=== PATIENT | male | born 1955 | race Caucasian/White ===

== ENCOUNTER 2020-08-22 18:04 | Emergency (ER) | payer OTHER, SELFPAY ==
[2020-08-22 18:11] VITALS: BP 157/92; PULSE 66; RESP 16; TEMP 36.5; O2SAT 98
[2020-08-22] MEDS: Lidocaine/Epinephri/Tetracaine Topical Gel 3 ML TP (18:28)
--- NOTE | 2020-08-22 18:37 | DI.RAD_ITS ---
EXAM: XR FINGER RT INDEX CLINICAL HISTORY: open laceration, table saw TECHNIQUE: COMPARISON: No exams were available for comparison FINDINGS: Three views were obtained. There is a nondisplaced fracture of the tuft the distal phalanx of the in dex finger at the site of soft tissue injury. No additional fracture seen. There are degenerative c hanges of the IP joints of the hand. IMPRESSION: RADIATION DOSE DELIVERED: Total DLP
--- NOTE | 2020-08-22 18:38 | ED.GENADUL_ITS ---
Discharge Plan Disposition Patient Disposition: HOME Condition: Stable Discharge Details Clinical Impression: Laceration of right index finger w/o foreign body with damage to nail Primary Care Provider: Sterling Brandon ED Provider: Clau Cormier Home Meds and New Rx's Prescriptions: New cephalexin [Keflex] 500 mg capsule 500 mg PO QID Qty: 20 RF: 0 Continued Prevnar 13 (PF) 0.5 mL syringe 0.5 ml IM ONCE Qty: 0.5 RF: 0 amoxicillin 500 mg capsule 2,000 mg PO PRN Qty: 20 RF: 1 aspirin [Aspirin Low-Strength] 81 MG tablet,chewable 81 mg PO DAILY RF: 0 minocycline 50 mg capsule 50 mg PO DAILY PRN (Reason: rosacea) Qty: 30 RF: 2 Discharge Instructions Instructions: Finger Laceration (ED) Additional Instructions: Keep your dressing clean dry and intact Elevate your finger above the level of your heart to reduce throbbing and pain You can use ibuprofen and/or acetaminophen as directed for pain Your tetanus was updated on this visit Call Sunday for a follow-up appointment for dressing change and wound check. 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 LET applied to area, x-ray shows 1. acute fracture of the second distal phalanx involving the tuft and the small portion of the diaphysis no significant distraction, 2. degenerative changes wound irrigated by nursing, surgicel and xeroform applied, tube gauze to secure. tetanus updated. given cefazolin 2 gm IVPB and will discharge on keflex 500 mg QID and outpatient orthopedic f/u for further management. reports no pain. Medical Records Medical records reviewed: Yes I reviewed the patient's medical records. Lab Data Lab results narrative: xray right index finger, fracture distal phaylnx HPI General Date/Time Provider Initiated Documentation: 08/22/20 18:17 . Limitations to Documentation: no limitations . Information obtained by: patient . HPI Narrative: Cut his right index finger on a table saw. Amputating the distal end of his finger including half of his nail and nailbed. Bleeding is controlled on presentation. Denies pain. No other injury. Is left-hand dominant. Unknown last tetanus Related Data Home Medications Medication Instructions Recorded Confirmed aspirin [Aspirin Low-Strength] 81 mg PO DAILY tab-cap 10/13/15 10/30/18 amoxicillin 500 mg capsule 2,000 mg PO PRN #20 cap 10/30/18 10/30/18 pneumoc 13-amilcar conj-dip cr(PF) 0.5 0.5 ml IM ONCE #0.5 ml 10/30/18 10/30/18 mL IM syringe minocycline 50 mg capsule 50 mg PO DAILY PRN #30 tab-cap 02/26/20 cephalexin [Keflex] 500 mg PO QID #20 cap 08/22/20 Previous Rx's Medication Instructions Recorded amoxicillin 500 mg capsule 2,000 mg PO PRN #20 cap 10/30/18 pneumoc 13-amilcar conj-dip cr(PF) 0.5 0.5 ml IM ONCE #0.5 ml 10/30/18 mL IM syringe minocycline 50 mg capsule 50 mg PO DAILY PRN #30 tab-cap 02/26/20 cephalexin [Keflex] 500 mg PO QID #20 cap 08/22/20 Allergies Allergy/AdvReac Type Severity Reaction Status Date / Time No Known Allergies Allergy Unverified 10/30/18 09:06 General Stated Complaint: Laceration MEEK: 3 Review of Systems All systems reviewed & are unremarkable except as noted in HPI and below Integumentary/Breasts Skin/Breast: Reports other (Amputation distal index finger) Hematologic/Lymphatic Hematologic/Lymphatic: Denies easy bleeding and Denies easy bruising [facility] Medical History (Updated 08/22/20 @ 19:00 by Clau Cormier NP) Alcohol intake above recommended sensible limits Polyp of colon, adenomatous Rosacea Surgical History ANKLE FUSION AND JOHNNIE (05/25/14) [facility]; LEFT ANKLE (RIGHT ANKLE 08/25/14) Colonoscopy - MAC (11/18/13) Colonoscopy - MAC (12/19/17) FRACTURE AGE 4; DEPRESSED SKULL FX; 1968 RIGHT CLAVICLE FX 1971 B/L COMPOUND FX OF TIBIA 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 Brother No problems noted. Brother No problems noted. Other Alcohol abuse Social History (Updated 10/31/18 @ 09:34 by Abril Pearl) Smoking/Tobacco Use Status: Former Tobacco Use Alcohol Intake: current Alcohol Intake frequency: 3 or more drinks per day Drug use: Never Substance use type: does not use Household members: spouse Housing: house Pets and animals: No Sexually active: Yes Do you think of yourself as: straight/heterosexual Current gender identity: male What is your relationship status?: How often do you get together with friends or relatives?: once per week Panel score (0-1 are the most socially isolated patients): 1 Duration: 15-30 minutes/day Frequency: 5-6 times per week Do you feel safe in your relationship?: Yes Exam Const General: cooperative, healthy appearing, comfortable and no acute distress Nutritional Appearance: average body habitus Orientation: alert, awake and oriented x3 HENMT Head: normal to inspection, normocephalic and atraumatic Mouth: oral mucosae normal Resp Effort & Inspection: normal respiratory effort Auscultation: clear to auscultation bilaterally Cardio Rate: regular rate Rhythm: regular rhythm Skin Wounds: amputation site (distal right index finger, partial nail and nail bed, bleeding controlled) Neuro General: patient alert, patient awake and patient oriented x3 Extrem Right upper extremity: hand Details: other (amp/avulsion distal right index) Course Vital Signs Vital signs: Vital Signs Temperature 36.5 C 08/22/20 18:11 Pulse 66 08/22/20 18:11 Respiratory Rate 16 08/22/20 18:11 Blood Pressure 157/92 H 08/22/20 18:11 Pulse Oximetry 98 08/22/20 18:11 Temperature 36.5 C 08/22/20 18:11 Temperature Source Temporal Artery Scan 08/22/20 18:11 Pulse 66 08/22/20 18:11 Respiratory Rate 16 08/22/20 18:11 Respiratory Effort Non-Labored 08/22/20 18:28 Blood Pressure 157/92 H 08/22/20 18:11 Blood Pressure Position Sitting 08/22/20 18:11 Pulse Oximetry 98 08/22/20 18:11 Oxygen Delivery Method Room Air 08/22/20 18:11 Oxygen Flow Rate 0 08/22/20 18:11 Pain Level 1 08/22/20 18:28
--- NOTE | 2020-08-22 18:51 | DI.VRAD_ITS ---
PROCEDURE INFORMATION: Exam: XR Right Finger(s) Exam date and time: 08/22/2020 18:33 Age: 65 years old Clinical indication: Injury or trauma; Other: Table saw; Laceration; Right; Index finger TECHNIQUE: Imaging protocol: XR Right fingers. Views: Minimum 2 views. COMPARISON: No relevant prior studies available. FINDINGS: Bones/joints: Acute fracture, 2nd distal phalanx involving the tuft and a tiny portion of the diaphysis. No significant distraction. Degenerative changes throughout the interphalangeal joints as well as in the radial aspect of the wrist and radiocarpal joint. DIP and PIP degenerative changes appear moderate to severe in the 2nd digit. Soft tissues: Digital soft tissue swelling. No radiopaque foreign body is seen. IMPRESSION: 1. Acute fracture, 2nd distal phalanx involving the tuft and a tiny portion of the diaphysis. No significant distraction. 2. Degenerative changes. Dictated and Authenticated by: Parvin Julian MD. Ordering:PRADEEP Olguin MD
[2020-08-22] MEDS: Cellulose,Oxidized 2X3 PKT 1 EACH MC (18:56)
[2020-08-22 19:54] VITALS: BP 155/93; PULSE 68; O2SAT 99
== END 2020-08-22 19:55 | disposition home or self-care (01) ==
PROVIDERS: Emergency Provider Nurse Practitioner Acute Care; PCP Family Medicine
DX: S62.660B Nondisplaced fracture of distal phalanx of right index finger, initial encounter for open fracture (principal); W31.2XXA Contact with powered woodworking and forming machines, initial encounter
CPT/HCPCS: 90471; 96365; 99284; 73140; J0690

== ENCOUNTER 2020-11-26 01:45 | Outpatient (CLI) | payer OTHER, SELFPAY ==
[2020-11-27 11:55] LABS: COVID-19 RT-PCR UVMMC Result Negative (Negative)
== END 2020-11-26 02:05 ==
PROVIDERS: PCP Family Medicine; Visit Provider Family Medicine
DX: Z20.822 Contact with and (suspected) exposure to COVID-19 (principal)
CPT/HCPCS: U0003

== ENCOUNTER 2021-11-21 11:21 | Outpatient (CLI) | payer MEDICARE, BC, SELFPAY ==
--- NOTE | 2021-11-21 11:00 | DI.RAD_ITS ---
Exam(s) XR KNEE RT 4V AP,LAT,MAURILIO,PAT EXAM: XR KNEE RT 4V AP,LAT,MAURILIO,PAT CLINICAL HISTORY: right knee pain. TECHNIQUE: 2D digital imaging was performed. COMPARISON: No exams were available for comparison FINDINGS: There is no evidence of fracture but there does appear to be joint effusion as seen on the lateral. There are tricompartmental osteoarthritic degenerative changes. In the medial compartment is bone-on -bone narrowing; less so in the lateral compartment. Patellofemoral exhibits [id number] narrowing in the lateral aspect; less so in the medial aspect. Marginal osteophytes are seen off both upper an d lower aspect the patella as well as the adjacent anterior aspects of the condyles. IMPRESSION: Advanced osteoarthritic degenerative changes as described above DATA REPOSITORY: RADIATION DOSE DELIVERED:
== END 2021-11-21 11:22 | disposition home or self-care (01) ==
LOC: DIORS 11:22
PROVIDERS: PCP Family Medicine; Referring Provider Family Medicine; Visit Provider Physician Assistant
DX: M17.11 Unilateral primary osteoarthritis, right knee; Z96.642 Presence of left artificial hip joint; Z98.1 Arthrodesis status; M25.561 Pain in right knee
CPT/HCPCS: 20610; 99213; 73564; J1040

== ENCOUNTER 2022-01-25 03:13 | Outpatient (CLI) | payer MEDICARE, BC, SELFPAY ==
[2022-01-25 09:37] LABS: Abs Immature Grans 0.01 10^3/uL (0.0-0.06); Absolute Basophil Count 0.05 10^3/uL (0.0-0.2); Absolute Eosinophil Count 0.09 10^3/uL (0.0-0.7); Absolute Lymphocyte Count 1.26 10^3/uL (1.2-3.4); Absolute Monocyte Count 0.52 10^3/uL (0.1-0.8); Absolute Neutrophil Count 3.27 10^3/uL (1.2-6.7); Eosinophils % 1.7; HCT 46.7 % (40.0-50.0); HGB 15.6 g/dL (13.5-17.5); Immature Grans % 0.2; Lymphocytes % 24.2; MCH 32.2 pg (27.0-33.0); MCHC 33.4 % (32.0-36.0); MCV 96.3 fL (80-95); MPV 9.6 fL (8.0-11.0); Neutrophils % 62.9; Nucleated RBC 0 %; Platelet Count 144 10^3/uL (130-400); RBC 4.85 10^6/uL (4.36-5.78); RDW 11.6 % (11.8-14.1); RDW-SD 41.1 fL
[2022-01-25 10:32] LABS: ALT 65 U/L (16-63); AST 57 U/L (15-37); Albumin 3.8 g/dL (3.4-5.0); Alkaline Phosphatase 117 U/L (46-116); Bilirubin, Direct 0.3 mg/dL (0.0-0.2); Bilirubin, Total 0.8 mg/dL (0.2-1.0); CREATININE 1.1 mg/dL (0.70-1.30); Glucose 112 mg/dL (74-106); Total Protein 7.3 g/dL (6.4-8.2)
[2022-01-25 20:46] LABS: PSA, Screening 4.6 ng/mL (0.0-4.5)
[2022-01-26 08:26] LABS: Lab Add On Test DONE
[2022-01-26 15:18] LABS: Calculated LDL 88 mg/dL (<100); Cholesterol 158 mg/dL (<200); HDL Cholesterol 48 mg/dL (40-60); Triglyceride 111 mg/dL (<150)
== END 2022-01-25 03:14 | disposition home or self-care (01) ==
LOC: LBO 03:13
PROVIDERS: PCP Family Medicine; Visit Provider Family Medicine
DX: Z12.5 Encounter for screening for malignant neoplasm of prostate (principal); I10 Essential (primary) hypertension; G72.89 Other specified myopathies; R73.9 Hyperglycemia, unspecified; E78.5 Hyperlipidemia, unspecified
CPT/HCPCS: 36415; 80061; 80076; 82947; 84153; 82565; 85025

== ENCOUNTER 2022-02-14 10:39 | Outpatient (CLI) | payer MEDICARE, BC, SELFPAY ==
--- NOTE | 2022-02-14 09:45 | DI.RAD_ITS ---
Exam(s) XR STANDING ALIGNMENT EXAM: XR STANDING ALIGNMENT CLINICAL HISTORY: right knee DJD. TECHNIQUE: 2D digital imaging was performed. COMPARISON: CR XR KNEE RT 4V AP,LAT,MAURILIO,PAT from 11/21/2021 FINDINGS: Standing/four views There is a left hip prosthesis which appears to be in satisfactory position alignment and with no loo sening nor fractures evident. There are moderate degenerative changes in the opposite-right hip join t. There is advanced narrowing of the medial compartment of the right knee with an element of Verus deformity. There also degenerative changes in the medial compartment of the opposite-left knee but w ith lesser narrowing than the [id number] findings in the medial compartment of the right knee. The re are moderate degenerative changes in both lateral compartments. There is fusion hardware in both ankles. Also noted is a healed fracture site at the junction of the proximal and middle thirds of the right tibia. There also appears to be a more subtle but similar f inding at same location in the opposite-left tibia. IMPRESSION: DATA REPOSITORY: RADIATION DOSE DELIVERED:
== END 2022-02-14 10:40 | disposition home or self-care (01) ==
LOC: DIORS 10:40
PROVIDERS: PCP Family Medicine; Referring Provider Family Medicine; Visit Provider Physician Assistant
DX: M17.11 Unilateral primary osteoarthritis, right knee (principal)
CPT/HCPCS: 77073

== ENCOUNTER 2022-02-27 01:44 | Outpatient (CLI) | payer MEDICARE, BC, SELFPAY | END 2022-02-27 01:45 | disposition home or self-care (01) | LOC: LBO 01:44 | PROVIDERS: PCP Family Medicine; Visit Provider Student in an Organized Health Care Education/Training Program ==

== ENCOUNTER 2022-02-27 02:20 | Outpatient (CLI) | payer MEDICARE, BC, SELFPAY ==
[2022-02-27 10:20] LABS: HGB 15.3 g/dL (13.5-17.5); MCH 32.3 pg (27.0-33.0); MCV 95 fL (80-95); MPV 9.5 fL (8.0-11.0); Platelet Count 146 10^3/uL (130-400); RBC 4.74 10^6/uL (4.36-5.78); RDW 12.7 % (11.8-14.1); RDW-SD 44.6 fL; WBC 5.92 10^3/uL (4.4-10.8)
[2022-02-27 10:51] LABS: Anion Gap 8.8 mmol/L (3-11); BUN 23 mg/dL (7-18); CO2 27.2 mmol/L (21.0-32.0); CREATININE 1.2 mg/dL (0.70-1.30); Calcium 9.4 mg/dL (8.5-10.1); Chloride 101 mmol/L (98-107); Glucose 99 mg/dL (74-106); Potassium 4.6 mmol/L (3.5-5.1); Sodium 137 mmol/L (136-145)
[2022-02-27 16:10] LABS: Source Nasal/Nares
[2022-02-27 18:20] LABS: PSA, Diagnostic 4.9 ng/mL (<=4.5)
[2022-02-27 21:31] LABS: COVID-19 PCR Negative (Negative)
== END 2022-02-27 02:21 | disposition home or self-care (01) ==
LOC: LBO 02:20
PROVIDERS: PCP Family Medicine; Visit Provider Student in an Organized Health Care Education/Training Program
DX: M25.561 Pain in right knee (principal); M17.11 Unilateral primary osteoarthritis, right knee; R97.20 Elevated prostate specific antigen [PSA]; Z20.822 Contact with and (suspected) exposure to COVID-19; Z01.818 Encounter for other preprocedural examination; Z01.812 Encounter for preprocedural laboratory examination
CPT/HCPCS: 36415; 80048; 85027; 87635; U0003; U0005; 84153

== ENCOUNTER 2022-02-28 06:05 | Day surgery (SDC) | payer MEDICARE, BC, SELFPAY ==
[2022-02-28] VITALS (14 sets, daily range): BP systolic 111–135; BP diastolic 64–90; PULSE 63–81; RESP 15–23; TEMP 36.4–37.4; O2SAT 95–100; BMI 28.0
[2022-02-28] MEDS: Celecoxib 200 MG CAP 400 MG PO (06:46)
[2022-02-28] MEDS: Gabapentin 300 MG CAP PO (06:46)
[2022-02-28] MEDS: Acetaminophen 500 MG TAB 1000 MG PO (06:46)
[2022-02-28] MEDS: Lactated Ringers 1,000 ML 80 ML IV (06:46)
--- NOTE | 2022-02-28 06:51 | W.ANESPRE ---
General Info Date of Service Date Performed: 02/28/22 Height: 5 ft 10 in Weight: 88.8 kg Body Mass Index (BMI): 28.0 Surgical Procedure: Operation Date: 02/28/22 07:40 Proposed Procedure Side Surgeon p Knee Total Arthroplasty Right Yfn Garcia MD Meds Allergies and Home Medications Allergies Allergy/AdvReac Type Severity Reaction Status Date / Time No Known Allergies Allergy Verified 02/28/22 06:18 Home Medication Medication Instructions Recorded minocycline 50 mg capsule 50 mg PO DAILY PRN #30 tab-cap 01/09/22 olmesartan 40 1 tab PO HS 02/27/22 mg-hydrochlorothiazide 12.5 mg tablet Current Visit Medications: Current Medications Generic Name Dose Route Start Last Admin Trade Name Freq PRN Reason Stop Dose Admin Acetaminophen 1,000 mg 02/28/22 06:00 02/28/22 06:46 Acetaminophen 500 Mg Tab PO 1,000 mg PREOP HEATHER Administration Celecoxib 400 mg 02/28/22 06:00 02/28/22 06:46 Celecoxib 200 Mg Cap PO 400 mg PREOP HEATHER Administration Gabapentin 300 mg 02/28/22 06:00 02/28/22 06:46 Gabapentin 300 Mg Cap PO 300 mg PREOP HEATHER Administration Tranexamic Acid 1,000 mg/ 60 mls @ 360 mls/hr 02/28/22 06:00 Sodium Chloride IVPB PREOP HEATHER Tranexamic Acid 1,000 mg/ 60 mls @ 360 mls/hr 02/28/22 06:00 Sodium Chloride IVPB DIRECTED HEATHER Ringer's Solution 1,000 mls @ 80 mls/hr 02/28/22 06:00 02/28/22 06:46 IV 03/29/22 23:59 80 mls/hr INFUSION HEATHER Administration Cefazolin Sodium/Dextrose 2 gm in 50 mls @ 100 mls/hr 02/28/22 06:00 Ancef Duplex IVPB 03/29/22 23:59 PREOP HEATHER IV Miscellaneous Supplies 1 each 02/28/22 06:00 Iv Access IV 03/29/22 23:59 DIRECTED HEATHER Sodium Chloride 0 ml 02/28/22 06:00 Normal Saline Flush 10 Ml Syr IV 03/29/22 23:59 PRN PRN Sodium Chloride 0 ml 02/28/22 06:00 Normal Saline 10 Ml Vial IJ 03/29/22 23:59 DIRECTED PRN Sterile Water 0 ml 02/28/22 06:00 Water,Injection,Sterile 10 Ml Vial IJ 03/29/22 23:59 DIRECTED PRN PFSH Active Problems Active Problems: Problem Status Onset Code Tubular adenoma D36.9 Rosacea L71.9 Polyp of colon 11/18/13 K63.5 Family history of GI malignancy Z80.0 Chronic osteoarthritis 11/27/13 M19.90 Alcohol intake above recommended sensible limits Z72.89 Laceration of right index finger w/o foreign body with damage to nail 08/22/20 S61.310A Degenerative joint disease of right knee M17.11 Screening for prostate cancer Z12.5 Hyperlipidemia with target LDL less than 130 E78.5 Elevated PSA R97.20 Sciatica M54.30 Essential hypertension I10 Medical History Medical History (Updated 02/28/22 @ 06:17 by Edgardo Hughes) Alcohol intake above recommended sensible limits HTN (hypertension) Hx of fracture of skull 4 years old Polyp of colon, adenomatous Rosacea Surgical History Surgical History (Updated 02/28/22 @ 06:18 by Edgardo Hughes) ANKLE FUSION AND JOHNNIE (05/25/14) [facility]; LEFT ANKLE (RIGHT ANKLE 08/25/14) Colonoscopy - MAC (11/18/13) Colonoscopy - MAC (12/19/17) FRACTURE AGE 4; DEPRESSED SKULL FX; 1968 RIGHT CLAVICLE FX 1971 B/L COMPOUND FX OF TIBIA Hx of tonsillectomy 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 Tobacco Smoking/Tobacco Use Status: Former Tobacco Use Smokeless tobacco user: chewing tobacco Passive smoking exposure: Yes Second hand exposure: Yes Alcohol Alcohol Intake: current Alcohol intake frequency: a few times a week Alcohol type: beer Substance Use Substance use: Never Substance use type: does not use Details: stopped chewing tobacco ~1994 Vital Signs and Lab Results Vital Signs Most Recent Vital Signs in EMR: Most Recent Vital Signs Temp Pulse Resp BP Pulse Ox 36.6 C 72 16 130/81 100 02/28/22 06:19 02/28/22 06:19 02/28/22 06:19 02/28/22 06:19 02/28/22 06:19 Lab Results Blood Type / Crossmatch: No Data to Display Complete Blood Count: White Blood Count 5.92 10^3/uL (4.4-10.8) 02/27/22 09:45 02/27/22 Red Blood Count 4.74 10^6/uL (4.36-5.78) 02/27/22 09:45 02/27/22 Hemoglobin 15.3 g/dL (13.5-17.5) 02/27/22 09:45 02/27/22 Hematocrit 45.0 % (40.0-50.0) 02/27/22 09:45 02/27/22 Platelet Count 146 10^3/uL (130-400) 02/27/22 09:45 02/27/22 Complete Metabolic Panel: Sodium Level 137 mmol/L (136-145) 02/27/22 09:45 02/27/22 Potassium Level 4.6 mmol/L (3.5-5.1) 02/27/22 09:45 02/27/22 Chloride Level 101 mmol/L (98-107) 02/27/22 09:45 02/27/22 Carbon Dioxide Level 27.2 mmol/L (21.0-32.0) 02/27/22 09:45 02/27/22 Blood Urea Nitrogen 23 mg/dL (7-18) H 02/27/22 09:45 02/27/22 Creatinine 1.2 mg/dL (0.70-1.30) 02/27/22 09:45 02/27/22 Estimated GFR/1.73 m2 >= 60.00 (mL/min/1.73m2) 02/27/22 09:45 02/27/22 Calcium Level 9.4 mg/dL (8.5-10.1) 02/27/22 09:45 02/27/22 Glucose Level 99 mg/dL (74-106) 02/27/22 09:45 02/27/22 Liver Function Panel: No Data to Display Coagulation Panel: No Data to Display Cardiac Panel: No Data to Display Arterial Blood Gas: No Data to Display Venous Blood Gas: No Data to Display Pancreas Panel: No Data to Display Thyroid Panel: No Data to Display Infectious Disease: Coronavirus (COVID-19)(PCR) Negative (Negative) 02/27/22 14:52 02/27/22 Coronavirus 2019 Source Nasal/Nares 02/27/22 14:52 02/27/22 Blood Cultures: No Data to Display Toxicology Panel: No Data to Display Anesthesia Assessment and Plan Anesthesia History Personal History: No History of Anesthesia Complications Family History: No Family History of Anesthesia Complications Exercise Tolerance Exercise Tolerance: Metabolic Equivalents>4 Pertinent Negatives Pertinent Negatives: No Symptoms of GERD, No Major Cardiovascular Symptoms or Complaints and No Major Pulmonary Symptoms or Complaints Cardiac & Pulmonary Exam Cardiac Exam: Normal S1/S2 Heart Sounds Pulmonary Exam: Clear Bilateral Breath Sounds Implantable Cardiac Device Does patient have a Pacemaker or an ICD?: No Airway Exam Known Difficult Airway: No Mallampati Class: 1 Mouth Opening: Normal (> 3cm) Thyromental Distance: Greater than 3 cm Facial Hair: Full Ortega (Mustache) Neck Range of Motion: Full ROM Neck Circumference: Normal Teeth Condition: Normal Dentition ASA Classification ASA Score: ASA 2 Emergency Case?: No NPO Status NPO Status: NPO Clears >2 hours, Solids >8 hours Anesthesia Plan Resuscitation Status: Full Code Anesthesia Technique: Spinal Anesthesia Airway Planned: Natural Airway Pain Management: Surgeon and patient request nerve block Monitors Used: Standard Monitors
--- NOTE | 2022-02-28 07:19 | DSE_ITS ---
DS: Diagnosis Discharge Diagnosis (1) Degenerative joint disease of right knee: Status: Chronic Discharge Plan Disposition Patient Disposition: HOME Condition: Good Discharge Details Reason For Visit: Right knee DJD Attending Provider: Yfn Garcia Primary Care Provider: Sterling Brandon Home Meds and New Rx's Prescriptions: New celecoxib [Celebrex] 200 mg capsule 200 mg PO BID Qty: 30 0RF aspirin 81 mg tablet,delayed release (DR/EC) 81 mg PO BID 30 Days Qty: 60 0RF acetaminophen 500 mg tablet 500 mg PO Q6H PRN (Reason: pain) Qty: 60 2RF pantoprazole 40 mg tablet,delayed release (DR/EC) 40 mg PO DAILY 30 Days Qty: 30 0RF docusate sodium [Colace] 100 mg capsule 100 mg PO BID Qty: 30 0RF gabapentin 300 mg capsule 300 mg PO QHS Qty: 14 0RF Rx Instructions: Take one tablet at bedtime oxycodone 5 mg tablet 5 mg PO Q4H PRN (Reason: severe post-operative pain) Qty: 18 0RF Rx Instructions: Take one tablet up to every 4 hours as needed for severe pain Continued minocycline 50 mg capsule 50 mg PO DAILY PRN (Reason: rosacea) Qty: 30 0RF olmesartan-hydrochlorothiazide 40-12.5 mg tablet 1 tab PO HS 0RF Discharge Instructions Additional Instructions: Total Knee Discharge Instructions Activity: The most important activity is to walk. You should try to take short walks a few times a day. It is important that when resting you work on keeping the knee straight. Avoid putting a pillow behind the knee as this will encourage flexion. Work on range of motion exercises as provided by Physical Therapy. If you have the Bumpr bike coming, this will be your primary tool for exercise after the knee replacement. You should use it and follow the dire ctions for the knee. Utilize the other exercises sparingly based on your symptoms. - Start outpatient physical therapy within 2 weeks. - You should wear the SONNY hose on both legs for 2 weeks. You may remove these at night. You may also use any compression sock in place of the SONNY hose. - Utilize [employer] to review exercises, see videos on exercises and obtain basic information pertaining to your surgery and your recovery. Dressing: Remove the Herminio wrap by 2 days after your surgery and put on the SONNY stocking given to you from the hospital. Keep the surgical dressing (underneath the HERMINIO wrap) in place for at least one week. After the first week it may be removed and replaced with light gauze and tape or nothing. The wound and dressing may get wet after 3 days but avoid soaking the dressing or otherwise it will need to be changed. Many people prefer covering the dressing with cling wrap (saran wrap) to minimize it from getting soaked. If it gets wet, just pat dry. If it starts to peel off then it will need to be changed. Medications: - You should take Tylenol and anti-inflammatory Celebrex as your primary pain co ntrol medications. If the Celebrex is too expensive or not covered, please call the office for another alternative (Advil/Ibuprofen or Naproxen/Aleve) - You have been prescribed a stronger pain medication Oxycodone for breakthrough pain, take as needed as prescribed. - You have also been prescribed a stomach acid reduction agent Pantoprozole to help reduce stomach acid and reflux. - You have been prescribed Gabapentin to take at night for restlessness and nerve pain. - You will be taking Aspirin 81mg twice a day for DVT prevention unless instructed otherwise. - If you have constipation you should take Colace (which has been prescribed) or Miralax (which is available for purchase [id number]). It takes most people 3-4 days to have a bowel movement. Follow-up: 2 weeks March 13, 2022 @ 10:00 AM If you have any acute concerns or questions, please do not hesitate to contact the office at [phone]. You may contact Dr. Garcia with any questions after hours through the hospital at [phone] or on his cell phone at [phone]. Stand Alone Forms: Anesthesia Discharge Inst., Anes.Nerve Block Instructions, Ann Marie Harris ([facility]) Referrals: Yfn Garcia MD [ [facility] STAFF PHYSICIAN] - Equipment/Supplies: Walker Activity:: Elevate Remove Dressings/Wound Care:: Do Not Remove Shower/Bathe:: Cover Diet:: As Tolerated Discharge Orders Discharge Orders: Discharge Order (Routine); Ordered 02/28/22 Ordered By: Yfn Garcia DS: Summary Time Spent with Patient providing and/or coordinating discharge services: Less than 30 minutes Status at Discharge Functional status at discharge: uses cane/walker Overall status at discharge: patient is progressing back to baseline Mental Status: mental status grossly normal Speech and Movement: speech and movement normal Mood: congruent mood Affect: normal affect Exam Psych Mental Status: mental status grossly normal Speech and Movement: speech and movement normal Mood: congruent mood Affect: normal affect DS: Data Vitals/I&O Vitals and I&O: Vital Signs Temperature 98.8 F 02/28/22 07:10 Temperature Source Temporal Artery Scan 02/28/22 07:10 Pulse 66 02/28/22 07:15 Pulse Rhythm Regular 02/28/22 06:19 Respiratory Rate 16 02/28/22 07:15 Blood Pressure 133/79 02/28/22 07:15 Blood Pressure Mean 97 02/28/22 07:15 Blood Pressure Position Supine 02/28/22 07:10 Pulse Oximetry 100 02/28/22 07:15 Oxygen Delivery Method Room Air 02/28/22 07:15 Oxygen Flow Rate 0 02/28/22 07:15 Pain Level 0 02/28/22 07:15 Intake & Output 02/27/22 02/27/22 02/28/22 11:59 23:59 11:59 Weight 203 lb 4.012 oz 195 lb 12.328 oz PFSH All Active Problems Tubular adenoma (Acute) 11/18/13 12/19/17 Rosacea (Acute) Polyp of colon (Acute 11/18/13) TUBULAR ADENOMA, also 12/19/17. Family history of GI malignancy (Acute) Chronic osteoarthritis (Acute 11/27/13) severe OA ankles bilat s/p NIKI left-2010; OA 05/25/14; [facility] LEFT ANKLE WITH ACHILLES TENDON CONTRACTURE. S/P LEFT ANKLE FUSION WITH JOHNNIE. Alcohol intake above recommended sensible limits (Acute) Laceration of right index finger w/o foreign body with damage to nail (Acute 08/22/20) Degenerative joint disease of right knee (Chronic) Depo-Medrol injection: 11/21/2020 Screening for prostate cancer (Acute) Hyperlipidemia with target LDL less than 130 (Acute) Elevated PSA (Acute) Sciatica (Acute) Essential hypertension (Acute) Medical History Alcohol intake above recommended sensible limits HTN (hypertension) Hx of fracture of skull 4 years old Polyp of colon, adenomatous Rosacea Surgical History ANKLE FUSION AND JOHNNIE (05/25/14) [facility]; LEFT ANKLE (RIGHT ANKLE 08/25/14) Colonoscopy - MAC (11/18/13) Colonoscopy - MAC (12/19/17) FRACTURE AGE 4; DEPRESSED SKULL FX; 1968 RIGHT CLAVICLE FX 1971 B/L COMPOUND FX OF TIBIA Hx of tonsillectomy 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 Brother Prostate cancer Brother No problems noted. Other Alcohol abuse Social History Smoking/Tobacco Use Status: Former Tobacco Use Quit Date: 10/29/94 Smokeless tobacco user: chewing tobacco Second Hand Exposure: Yes Smoking risk assessment performed?: Yes Alcohol Intake: current Alcohol Intake frequency: a few times a week Alcohol type: beer Drug use: Never Substance use type: does not use Details: stopped chewing tobacco ~1994 Household members: spouse Housing: house Communication Needs: None Pets and animals: No Sexually active: Yes Do you think of yourself as: straight/heterosexual Current gender identity: male What is your relationship status?: How often do you talk on the phone with friends or family?: once per week How often do you get together with friends or relatives?: twice per week Do you belong to any clubs or organized social groups?: no Panel score (0-1 are the most socially isolated patients): 2 What type of physical activity do you participate in: walking Duration: 45-60 minutes/day Frequency: daily Bobbi/Church: No preference Seatbelt use: always Helmet use: Yes Helmet use: always Drive intox or ride w/intox airport shuttle driver: No Do you feel safe at home: Yes Do you feel safe in your relationship?: Yes
[2022-02-28] MEDS: ceFAZolin 2 GM/50 ML BAG IVPB (07:40)
--- NOTE | 2022-02-28 08:28 | W.ANESNERVE ---
Nerve Block Single Injection Procedure Date and Time Date Performed: 02/28/22 Procedure Start: 07:13 Location Where Procedure Performed Procedure Location: Day Surgery Unit Reason Performed: Postoperative Analgesia Requesting Provider: Yfn Garcia Timeout Performed Timeout Performed: Yes Monitoring Used ECG, Blood Pressure, SpO2 and See EMR for corresponding vital signs Sterility Sterility: Hand Hygiene, Surgical Cap, Surgical Mask, Sterile Gloves, Eye Protection and Chlorhexidine Sedation Given During Procedure Sedation Given (Indicate Dose Given): No Sedation given Patient Mental Status Patient Mental Status: Awake Nerve Block 1st Nerve Block: Laterality: Right Block Type: Adductor Canal Needle / Catheter Used: 100mm SonoPlex II Local Anesthetic Bolus (Indicate Dose Given): Lidocaine used for local infiltration of skin, Injected in 3-5ml increments after negative blood aspiration and Bupivacaine 0.25% Dose:: 15mL Additives (Indicate Dose Given): None Ultrasound: Sterile probe cover and gel used Ultrasound Image Saved?: Yes Nerve Stimulator: Not Used Paresthesia: None Procedure Tolerated: Patient tolerated well Procedure Outcome: Successful Performed By: Keeley Mathew
--- NOTE | 2022-02-28 09:33 | ROE_ITS ---
Date of service: 02/28/22 Time of Service: 09:33 Operative Note Operative Note DATE OF PROCEDURE: 02/28/22 PRE-OP DIAGNOSIS: Right Knee Osteoarthritis POST-OP DIAGNOSIS: same PROCEDURE: Right Total Knee Replacement SURGEON: Yfn Garcia EMERGENCY GENERATOR MECHANIC: Pricila Jimenez Refer to Anesthesia Record ESTIMATED BLOOD LOSS: 300 PATHOLOGY: none sent TOURNIQUET TIME: 0 COMPLICATIONS: None Patient was transported to: PACU Patient's condition: stable Implants: 1. Depuy Attune Cementless Cruciate Retaining Femoral Component, Size 8 2. Depuy Attune Cementless Rotating Platform Tibial Component, Size 7 3. Depuy Attune 8x6mm CR/RP Poly 4. Depuy Attune Patellar Component, Size 41 Indications: I have seen Vitaly in clinic for symptoms of knee arthritis, confirmed with radiographic findings. Vitaly has exhausted nonoperative methods and was having significant limitations in daily function and desired better function and less pain. I discussed the technical details of a knee replacement. I explained the risks of the procedure to include, but not limited to, bleeding, infection, pa in, stiffness, fracture, damage to nerves and vessels, damage to muscles and tendons, loosening, need for repeat procedure, blood clot and cardiopulmonary demise. Despite these risks, he elected to proceed. Findings: There was significant signs of arthritis throughout the knee. Procedure Description: Vitaly was greeted in the preoperative holding area where the correct side was identified and marked. The consent was reviewed with the patient and signed. The history and physical was updated. All questions were answered. Preoperative medications were administered: Acetaminophen 1000mg, Celebrex 400mg, and Gabapentin 300mg. An adductor canal block was then administered by the anesthesia team in the PACU. Vitaly was taken back to the operating room. A spinal anesthestic was then administered. The patient was placed into the supine position on the operating room table. A nonsterile tourniquet was placed high onto the leg but only used for cementing. Posts were placed for positioning during the procedure. All bony prominences were well padded. Prophylactic antibiotics in the form of Cefazolin were administered. 1g of Tranxemic Acid was given intravenously within 30 minutes of incision. The right leg was then prepped with Chloraprep and draped in a standard fashion with impervious stockinette. A second prep with Chloraprep was performed prior to application of Iodine impregnated skin protection. A timeout to confirm correct identity, side and site, procedure, allergies, anesthesia, and medical concerns was performed. With the knee in some flexion, a midline incision was made overlying the knee. Full thickness skin flaps were raised once the extensor mechanism was encountered. These were raised medially and laterally. Any bleeding was controlled with electrocautery. Once the extensor mechanism was fully exposed, a medial parapatellar arthrotomy was performed in a flexed position. All bleeding from the arthrotomy and the geniculate arteries was coagulated. A medial subperiosteal peel was performed with electrocautery to the midcoronal plane. Due to the significant varus deformity the entire medial tibial plateau was exposed. The fat pad was removed while keeping the patellar tendon protected. The anterior distal femur synovium was removed for later visualization. The ACL and PCL were resected and the anterior horn of the lateral meniscus was transected. The knee was then flexed with the patella everted. Large osteophytes from the tibia were removed. Large osteophytes from the femur were removed. Using a step drill, and based on preoperative templating, the femoral canal was entered. This was done with a step drill without any difficulty. The intramedullary distal femoral cut guide was inserted, set to a 5 degree valgus cut and 9mm cut thickness. The distal femoral cut guide was then held in position and pinned. With the soft tissues protected, the distal cut was performed. This was passed over a few times to ensure a planar cut. I then turned attention to the tibia. The extramedullary guide was placed onto the leg. The distal aspect was slid medial to adjust for position of center of ankle and stay in line with shaft of the tibia. Approximately 3-5 degrees of posterior slope was kept in the proximal cutting guide. The center of the guide was aligned with the PCL. The stylus was used to assess cut thickness. The medial side, most involved side, was set for a 2mm cut. This was then held in position and pinned into place with 2 additional pins and a cross pin for stability. The medial and lateral collateral ligaments were protected and the cut was performed. With this completed, it was assessed and noted to be of appropriate dimensions. The guide was removed. A spacer block was inserted and the knee was brought into extension. The 6mm spacer block provided full extension, without hyperextension and with stability of both the medial and lateral collateral ligaments was assessed. The pins from the femur and the tibia were then removed. The distal femur was then sized. The anterior stylus was placed onto the lateral ridge of the anterior femur. This indicated a size 8 femur. The external rotation of the guide was adjusted to 5 degrees to match the epicondylar axis, perpendicular to Traphill?s line. The 4-in-1 cutting guide was the placed. The posterior medial femur cut was evaluated and appeared of good thickness. The spacer block was inserted underneath the cutting guide and stability was confirmed in 90 degrees of flexion. An katarina wing was used to confirm appropriate position of the anterior cut to avoid notching. This cutting guide was ensured to be flush on the cut surface and then pinned into place with headed pins. While protecting the soft tissues, quad tendon, and collateral ligaments, the anterior and posterior cuts were performed with a saw. The central two pins were removed and the posterior and anterior chamfers were cut next. The notch-cutting guide was placed. This was pinned to lateralize the femoral component as much as possible while keeping it flush on the cut surface. This was then pinned into position. A reciprocating saw was used to make the notch cut. A rasp smoothed the cut surfaces. The medial and lateral menisci were removed. A trial femoral component was then inserted, impacted down to the cut surfaces, and the lug holes were drilled. A provisional trial tibial component was placed and the knee was brought through range of motion. There was noted to be excellent extension and flexion. There was no significant instability. The polyethylene was trialed until there was good flexion and extension with excelle nt stability to the medial and lateral collaterals. The patella was tracking without thumbs. A size 6mm polyethylene component provided the best range of motion and stability with less than 2mm gapping with medial and lateral stress and full extension without significant hyperextension. The tibial cut surface was fully exposed. The tibia was then sized as a 7. The tibia had been previously marked during trialing to correspond to the center of the tibial component to help with rotation. The trial was aligned to this lashawn, approximately rotated to the medial 1/3rd of the tibial tubercle. The trial was pinned into place. The tibia was prepared with a reamer and a keel punch and lug holes. The knee was then brought into extension and the patella was measured as 32mm. Using the patellar clamp and cut guide, this was resected to a flat surface with at least 13mm of thickness remaining. The size 41 patella fit the best. This was oriented and then clamped into position. The lugs were drilled. The trial components were removed. The final components were opened on the back table. The periosteal and capsular tissues, especially posteriorly, around the knee were then systematically injected with a periarticular cocktail consisting of 50cc 0.25% Marcaine, 30mg Ketorolac, 20cc of Exparal and 50cc of injectable saline. The knee was thoroughly irrigated with a pulse lavage and dried. Irrisept was also used to irrigate the tissues. On the back table, with the implants opened, the cement was mixed. One batch of high viscosity cement was prepared with vacuum assistance. After the cement was ready a small amount was placed on the cut surface of the patella and the patellar button was clamped into position and held. While the cement was hardening, the cementless knee components were placed. Starting with the tibial component, the tibia was subluxed anteriorly and the lug holes of the component were lined up. The tibia was then impacted with an impactor and mallet until the tibial component was in contact with the tibia. The final polyethylene component was inserted. Then, the femoral component was inserted. The lug holes were aligned and the component was impacted into position. The knee was irrigated with Irrisept chlorhexadine solution. This was allowed to sit in the knee for 3 minutes. After the cement had finally cured, approximately 15min, the clamp was removed from the patella and the knee was taken through range of motion. The patella was tracking with a no-thumbs technique. The capsule was then reapproximated with a No. 1 Vicryl at multiple locations. The capsule was finally closed with a No. 2 Stratafix, barbed suture. The second dosing of 1g TXA was started. Deep tissues were then reapproximated with 0 Vicryl and 2-0 Vicryl. The skin was closed with a running 3-0 Monocryl in a subcuticular fashion. This was reinforced with skin glue. A Mepilex silver dressing was applied along with a [id number] FADY wrap. A CryoCuff was applied. Vitaly was transferred to the hospital bed without difficulty an suffering no apparent complication. Vitaly has a good prognosis. Physical therapy will start today and without rest rictions, weight-bearing as tolerated. Aspirin 81mg BID will be used for DVT prophylaxis.
[2022-02-28] MEDS: HYDROmorphone 2 MG/ML VIAL IVP ×4 (10:12→10:49)
[2022-02-28] MEDS: Normal Saline Flush 10 ML SYR IV (10:12)
[2022-02-28] MEDS: oxyCODONE 5 MG TAB PO (11:26)
--- NOTE | 2022-02-28 12:48 | PT.INIE ---
Date of service: 02/28/22 Time of Service: 12:48 PT Notes Visit Reasons: Right knee DJD Physical Therapy Day Surgery Initial Evaluation Date: 02/28/2022 Referring Doctor: SARY Reed PT Orders: PT CONSULT: S/P Ortho surgery Precautions: WBAT on right LE with AD. Patient Profile/Admitting Diagnosis: Zion is a 66-year-old male with degenerative joint disease of the right knee and status post right total knee arthroplasty on postoperative day 0. PMHX: Medical History? Alcohol intake above recommended sensible limits Polyp of colon, adenomatous Rosacea Surgical History? ANKLE FUSION AND JOHNNIE (05/25/14) [facility]; LEFT ANKLE (RIGHT ANKLE 08/25/14)Colonoscopy - MAC (11/18/13) Colonoscopy - MAC (12/19/17) FRACTURE AGE 4; DEPRESSED SKULL FX; 1969 RIGHT CLAVICLE FX 1972 B/L COMPOUND FX OF TIBIA Total replacement of hip (~03/2013 Social History/Home Situation: Lives with in a private home with 2 steps to enter without rails. Independent with all aspects of ADLs prior to surgery. Equipment Owned/DME: [facility] Subjective: Agreeable to PT consult. Reports tightness in the back of the knee with weight bearing. Denies headache, chest pain, and lightheadedness throughout session. Objective: General Observation: Supine in bed. Herminio wraps to right LE. Cryocuff to right LE. TEDS on left LE. Mental Status: Alert and oriented x4 Pain: Denies ROM: Right Lower Extremity: Hip flexion WFL. Hip abduction WFL. Knee flexion 10 degrees to 110 degrees. Knee extension -10 degrees Ankle dorsiflexion WFL. Ankle plantarflexion WFL. Left Lower Extremity: Hip flexion WFL. Hip abduction WFL. Knee flexion WFL. Ankle dorsiflexion WFL. Ankle plantarflexion WFL. Strength: Right Lower Extremity: Hip flexors 5/5. Hip abductors 5/5. Knee flexors 3-/5. Knee extensors 3-/5. Ankle dorsiflexors 5/5. Ankle plantarflexors 5/5. Left Lower Extremity:Hip flexors 5/5. Hip abductors 5/5. Knee flexors 5/5. Knee extensors 5/5. Ankle dorsiflexors 5/5. Ankle plantarflexors 5/5. Sensation: Intact as to pain and light pressure in bilateral lower extremities. Bed Mobility/Transfers: Supine to sit independent Sit to stand standby assist Stand to sit standby assist Bed to chair standby assist Gait: Normal tolerated level surface ambulation of 250 feet using front wheeled walker with step to gait pattern requiring standby assist and wheelchair follow of nurse Reynoso/CHEPE Dobbins for safety. Complained of mild tightness in the back of the knee that subsided with ambulation. Balance: Static Sitting: Normal Dynamic Sitting: Normal Static Standing: Fair Dynamic Standing: Fair Special Tests: Mobility Limitations Standardized Measure [facility] 6 clicks Basic Mobility Inpatient Short Form: Raw Score: 23 CMS Score: 11% deficit Informed Consent/Education: Patient instructed in purpose of PT consult. Education and training on initial set of exercises that can be done at home have been completed with patient with reference to the [employer] kristy. Assessment: Zion requires the use of a front wheel walker to maximize independence and reduce fall risk at home. Patient presents with clinical signs and symptoms consistent with current/admitting diagnoses that have resulted to mobility limitations, gait instability, generalized weakness, and impairment of motor control as demonstrated by the following impairment level findings: 1. Decreased strength to right knee major muscle groups 2. Impaired standing balance 3. Limitation of joint range of motion in right 73109 moderate knee Impairments are contributing to the following functional limitations: 1. Inability to safely ambulate without assistive device 2. Increase completion time for mobility ADL performance 3. Increased fall risk Patient is assessed as a 81226 moderate complexity based on the following: History: 66-year-old male with impairment level findings, functional limitations, and past medical history as indicated above Examination: Demonstrable impairment in strength, balance, and mobility level with underlying impairments and functional limitations as documented above Presentation: Evolving Decision Makin moderate complexity Goals: N/A. PT evaluation and 1-2 treatment sessions only for functional mobility training using recommended AD and for HEP instruction. Plan of Care/Treatment Plan: N/A. PT evaluation and 1-2 treatment session only for functional mobility training using recommended AD and for HEP instruction. DISCHARGE RECOMMENDATIONS: [] Home with no services [] [] Home with services [specify] [X] Home with outpatient PT. Home when medically cleared by orthopedic surgeon. Will benefit from outpatient PT services in order to facilitate return to independent ADL performance and unassisted community ambulation. [] SNF for continued rehabilitation [] [] [facility] [] [] SNF versus LTC based on ability to participate and progress [] TREATMENT CODE/TIME: 68641 x 24 minutes beginning at 12:48 PM. Thank you for the opportunity to participate in the care of this patient. Erica Casas PT, DPT, CLT [facility] [place], [place]
--- NOTE | 2022-02-28 15:34 | W.ANESPOSTOP ---
Postoperative Evaluation Date, Time and Location Date Performed: 02/28/22 Time Performed: 13:45 Patient Location: Day Surgery Unit Vital Signs Most Recent Imported Vital Signs: Most Recent Vital Signs Temp Pulse Resp BP Pulse Ox 36.7 C 81 16 135/87 96 02/28/22 13:22 02/28/22 13:22 02/28/22 13:22 02/28/22 13:22 02/28/22 13:22 Pain Score Most Recent Pain Score: Most Recent Pain Score Pain Level 0 02/28/22 13:22 Assessment Mental Status: Awake (Alert & Oriented to Patient Baseline) Airway and Respiratory Function: Patent airway with normal (patient baseline) respiratory exam Cardiovascular Function: Hemodynamically Stable Hydration Status: Adequately Hydrated Nausea & Vomiting: No Nausea or Vomiting Pain: Pain is tolerable per patient Peripheral Nerve Block: Regional nerve block not resolved at time of post operative discharge
== END 2022-02-28 13:42 | disposition home or self-care (01) ==
PROVIDERS: PCP Family Medicine; Visit Provider Student in an Organized Health Care Education/Training Program
PROC: (CPT 27447; principal; 2022-02-28 07:30)
DX: M17.11 Unilateral primary osteoarthritis, right knee (principal); I10 Essential (primary) hypertension; E78.5 Hyperlipidemia, unspecified
CPT/HCPCS: 27447; C1776; 76942; 97162; J0690; J2001; J2370; J2405

== ENCOUNTER 2022-03-10 11:08 | Outpatient (CLI) | payer MEDICARE, BC, SELFPAY ==
--- NOTE | 2022-03-10 09:45 | DI.RAD_ITS ---
Exam(s) XR STANDING ALIGNMENT EXAM: XR STANDING ALIGNMENT CLINICAL HISTORY: 1ST POST OP R TKA. TECHNIQUE: 2D digital imaging was performed. COMPARISON: CR XR STANDING ALIGNMENT from 02/14/2022 FINDINGS: Left hip prosthesis is again noted and there has been interval placement of a right knee prosthesis w hich appears to be in satisfactory position. Moderate degenerative changes noted in the medial tian rtment of the opposite-left knee. There are moderate degenerative changes in the right hip again not ed. Fusion hardware is again noted at the level both ankle joints. Healed fracture sites again note d at junction of the proximal mid thirds tibia is. There is a cutaneous trans this tear-type device over the lateral aspect of the upper right calf. IMPRESSION: DATA REPOSITORY: RADIATION DOSE DELIVERED:
--- NOTE | 2022-03-10 09:45 | DI.RAD_ITS ---
Exam(s) XR KNEE RT 1V EXAM: XR KNEE RT 1V CLINICAL HISTORY: 1ST POST OP R TKA. TECHNIQUE: 2D digital imaging was performed. COMPARISON: CR XR KNEE RT 4V AP,LAT,MAURILIO,PAT from 11/21/2021 CR XR STANDING ALIGNMENT from 03/10/2022 FINDINGS: Single lateral view of the right knee reveals satisfactory position alignment of the components of th e right knee prosthesis. No fracture or loosening evident. Some soft tissue swelling is seen anteri or to the patella and patellar ligament. No patellar fracture evident on this lateral view. IMPRESSION: DATA REPOSITORY: RADIATION DOSE DELIVERED:
== END 2022-03-10 11:09 | disposition home or self-care (01) ==
LOC: DIORS 11:08
PROVIDERS: PCP Family Medicine; Referring Provider Family Medicine; Visit Provider Physician Assistant
DX: Z96.651 Presence of right artificial knee joint (principal)
CPT/HCPCS: 73560; 77073

== ENCOUNTER → 2022-04-07 09:31 | Outpatient (BNVA) | payer MEDICARE, BC, SELFPAY | PROVIDERS: PCP Family Medicine; Referring Provider Family Medicine; Visit Provider Student in an Organized Health Care Education/Training Program | DX: Z96.651 Presence of right artificial knee joint (principal); Z47.1 Aftercare following joint replacement surgery ==

== ENCOUNTER 2022-08-31 03:06 | Outpatient (CLI) | payer MEDICARE, BC, SELFPAY ==
[2022-08-31 19:43] LABS: PSA, Diagnostic 6.8 ng/mL (<=4.5)
== END 2022-08-31 03:07 | disposition home or self-care (01) ==
LOC: LBO 03:07
PROVIDERS: PCP Family Medicine; Visit Provider Family Medicine
DX: C61 Malignant neoplasm of prostate (principal)
CPT/HCPCS: 36415; 84153

== ENCOUNTER → 2022-09-28 12:44 | Outpatient (BNVA) | payer MEDICARE, BC, SELFPAY | PROVIDERS: PCP Family Medicine; Referring Provider Family Medicine; Visit Provider Nurse Practitioner Gerontology | DX: N42.89 Other specified disorders of prostate (principal); R97.20 Elevated prostate specific antigen [PSA] | CPT/HCPCS: 36415; 81003; 99214 ==

== ENCOUNTER 2022-09-28 16:03 | Outpatient (REF) | payer MEDICARE, BC, SELFPAY ==
[2022-09-28 15:57] LABS: CREATININE 1.2 mg/dL (0.70-1.30); Estimated GFR 65.46 (mL/min/1.73m2)
== END 2022-09-28 16:04 | disposition home or self-care (01) ==
LOC: LBN 16:03
PROVIDERS: PCP Family Medicine; Visit Provider Nurse Practitioner Gerontology
DX: R97.20 Elevated prostate specific antigen [PSA] (principal)
CPT/HCPCS: 82565

== ENCOUNTER → 2022-11-14 09:01 | Outpatient (BNVA) | payer MEDICARE, BC, SELFPAY | PROVIDERS: PCP Family Medicine; Referring Provider Family Medicine; Visit Provider Nurse Practitioner Gerontology | DX: R97.20 Elevated prostate specific antigen [PSA] (principal) | CPT/HCPCS: 99214 ==

== ENCOUNTER 2022-11-24 00:44 | Outpatient (CLI) | payer MEDICARE, BC, SELFPAY ==
--- NOTE | 2022-11-24 07:00 | DI.US_ITS ---
Exam(s) US PROSTATE BIOPSY EXAM: rise in PSA. pelvic MRI PI-RADs4,PROSTATE NODULE,N40.2,ULTRASOUND GUIDED BX COMPARISON: No exams were available for comparison TECHNIQUE: Ultrasound performed using standard protocol. FINDINGS: Sonography was provided for Dr. Mukherjee during the performance of a prostate biopsy. Please refer to the procedure report for complete details. DATA REPOSITORY:
--- NOTE | 2022-11-24 11:20 | PROST_PTH ---
PATIENT: Armin Boothe LOC: [facility] U#:[id number] AGE/SX: 67/M ROOM: RE11/24/[address]: Yann Mukherjee MD : 1955 BED: DIS: 11/24/2022 SPEC #: [id number] RECD: 11/24/22 12:16 STATUS: [facility] #: [id number] ZOFIA: 11/24/22 11:[address]: Yann Mukherjee DEPT: Surgical Specimen RECD BY: Judith Ziegler ENTERED: 11/24/22 12:19 SP TYPE: PROST OTHR DR: Sterling Brandon MD Tissues: 1 - PROSTATE NEEDLE BIOPSY 2 - PROSTATE NEEDLE BIOPSY 3 - PROSTATE NEEDLE BIOPSY 4 - PROSTATE NEEDLE BIOPSY 5 - PROSTATE NEEDLE BIOPSY 6 - PROSTATE NEEDLE BIOPSY 7 - PROSTATE NEEDLE BIOPSY 8 - PROSTATE NEEDLE BIOPSY 9 - PROSTATE NEEDLE BIOPSY 10 - PROSTATE NEEDLE BIOPSY 11 - PROSTATE NEEDLE BIOPSY 12 - PROSTATE NEEDLE BIOPSY Procedures: GROSS AND MICRO LEVEL 4 IMMUNOPEROXIDASE STAIN Comments: [id number]
--- NOTE | 2022-11-24 11:53 | W.PM.OP ---
Date of service: 11/24/22 Time of Service: 11:58 Operative Note Operative Note DATE OF PROCEDURE: 11/24/22 PRE-OP DIAGNOSIS: Elevated PSA POST-OP DIAGNOSIS: same PROCEDURE: Transrectal ultrasound-guided biopsy of the prostate SURGEON: Yann Mukherjee ANESTHESIA TYPE: Local By Surgeon Refer to Anesthesia Record ESTIMATED BLOOD LOSS: 10 PATHOLOGY: other (Laterally directed biopsies of the prostate) COMPLICATIONS: None Patient was transported to: no change Patient's condition: stable Implants: None Indications: This is a 67-year-old gentleman who has an elevated PSA of 6.8 ng/mL. He underwent a multiparameter prostate MRI which showed a suspicious lesion at the right base peripheral zone. He presents for ultrasound-guided biopsies of the prostate Findings: Prostate volume approximately 20 cc Procedure Description: The patient was given a mechanical and antibiotic bowel prep. He was brought to the radiology suite on 11/24/2022. He was placed in the left lateral position. Transrectal imaging of the prostate was then performed using a variable megahertz transducer. The prostate was imaged in transverse and longitudinal planes. The prostatic volume was calculated at approximately 20 cc. Both seminal vesicles appeared normal. No significant hypoechoic areas were seen in the peripheral zone. The transition zone appeared normal. A periprosthetic nerve block was then performed using 1% lidocaine. A total of 12 laterally directed biopsies were then taken, labeled and sent to pathology for permanent section. The patient tolerated this procedure well with no complications.
== END 2022-11-24 01:04 ==
LOC: DI 00:44
PROVIDERS: PCP Family Medicine; Visit Provider Urology
DX: C61 Malignant neoplasm of prostate (principal)
CPT/HCPCS: 55700; 76942; 88305; 88361

== ENCOUNTER → 2022-12-19 14:47 | Outpatient (BNVA) | payer MEDICARE, BC, SELFPAY | PROVIDERS: PCP Family Medicine; Referring Provider Family Medicine; Visit Provider Urology | DX: C61 Malignant neoplasm of prostate (principal) | CPT/HCPCS: 99214 ==

== ENCOUNTER 2022-12-26 01:12 | Outpatient (CLI) | payer MEDICARE, BC, SELFPAY ==
--- NOTE | 2022-12-26 07:15 | DI.NM_ITS ---
Exam(s) NM BONE SCAN WHOLE BODY GRP EXAM: [place] BONE SCAN WHOLE BODY GRP CLINICAL HISTORY: baseline study,new diagnosis prostate cancer,c61. TECHNIQUE: Injected Dose: 25 mCi Tc-99m MDP Delayed Images: 2-3 hours. COMPARISON: No exams were available for comparison FINDINGS: There photopenic zones in the left hip and right knee consistent with prostheses at these locations. Also noted is increased radiopharmaceutical uptake both ankles which is most probably degenerative. Also uptake in both wrists probably degenerative. There is no abnormal uptake in the skeleton to suggest osseous metastatic disease. IMPRESSION: 1. No evidence of metastatic disease. 2. Other findings as above. DATA REPOSITORY:
== END 2022-12-26 01:32 ==
LOC: DI 01:12
PROVIDERS: PCP Family Medicine; Visit Provider Urology
DX: C61 Malignant neoplasm of prostate (principal)
CPT/HCPCS: 78306

== ENCOUNTER → 2023-02-14 07:22 | Outpatient (BNVA) | payer MEDICARE, BC, SELFPAY | PROVIDERS: PCP Family Medicine; Referring Provider Family Medicine; Visit Provider Surgery | DX: Z12.11 Encounter for screening for malignant neoplasm of colon (principal); Z80.0 Family history of malignant neoplasm of digestive organs; Z86.010 Personal history of colon polyps ==

== ENCOUNTER 2023-03-01 08:21 | Day surgery (SDC) | payer MEDICARE, BC, SELFPAY ==
--- NOTE | 2023-02-28 21:32 | W.PM.DSUDISC ---
Date of service: 03/01/23 Time of Service: 10:25 Discharge Plan Disposition Patient Disposition: Home Condition: Good Discharge Details Reason For Visit: Screening colonoscopy Attending Provider: Crispin Thomas Primary Care Provider: Sterling Brandon Home Meds and New Rx's Prescriptions: Continued olmesartan-hydrochlorothiazide 40-12.5 mg tablet 1 tab PO HS Qty: 90 3RF minocycline 100 mg capsule 100 mg PO DAILY PRN (Reason: acne) Qty: 30 5RF Discontinued polyethylene glycol 3350 17 gram/dose powder 238 g PO ONCE Qty: 238 0RF Rx Instructions: take per colonoscopy instructions bisacodyl [Dulcolax (bisacodyl)] 5 mg tablet,delayed release (DR/EC) 5 mg PO ONCE Qty: 4 0RF Rx Instructions: take per colonoscopy instructions Discharge Instructions Instructions: Colorectal Polyps (GEN) Additional Instructions: Vitaly, we were able to complete your colonoscopy today without any difficulty. The quality of your prep was excellent. I did find 3 polyps during the colonoscopy, and I removed them all completely. Once I have the results of the pathology report, I will be in touch if we need to alter your screening interval. Incidentally, you have a mild internal hemorrhoid. 1. If tolerated, consume a soft, low fiber diet for 1-2 days. 2[address] Do not drive, drink alcohol, operate machinery, make critical decisions, or do activities that require coordination or balance for 24 hours. 3. Because air was put into your colon during the procedure, expelling air from your rectum (passing gas or farting) is normal. 4. You may not have a bowel movement for 1-3 days because of the colonoscopy prep. This is normal. 5. Go directly to the emergency room if you notice any of the following: Develop chills (warm to touch), or if you have a thermometer and your temperature is above 101 Difficulty breathing or difficultly swallowing Persistent vomiting Severe abdominal pain, other than gas cramps Severe chest pain Black, tarry stools Any bleeding ? exceeding one tablespoon 6. Call your physician if the site where your intravenous was started becomes red, swollen, painful, and warm to touch. 7. Your physician has reviewed your pre-procedure medications. Please continue to take those medications as previously ordered. You will be given specific information/education regarding any changes to your medications before leaving. Activity:: Activity as Tolerated Diet:: As Tolerated Discharge Orders Discharge Orders: Discharge Order (Routine); Ordered 02/28/23 Ordered By: Crispin Thomas DS: Diagnosis Discharge Diagnosis (1) Family history of GI malignancy: Status: Acute Asessment and Plan: Follow-up on polypectomy results
--- NOTE | 2023-02-28 21:34 | COLE_ITS ---
Date of service: 03/01/23 Time of Service: : Colonoscopy Report Date of procedure: 03/01/23 Pre-op diagnosis general: Screening colonoscopy Post-op diagnosis procedure note: other (Colon polyps) Procedure: Colonoscopy with polypectomy Surgeon: Crispin Thomas Anesthesia Type: General:No Airway Estimated blood loss (mL): 15 Pathology: other (Colon polyps from 70, 25, and 20 cm) Complications: None Disposition: same day Indications: Vitaly is a 67-year-old male here for his next screening colonoscopy Prep: Miralax/Dulcolax Procedure Start Time: 09:50 Procedure End Time: :09 Retraction Time: 12 Findings: 1 internal hemorrhoid, colon polyps at 70, 25 and 20 cm Procedure Description: After the induction of monitored anesthetic care, and with the patient in left lateral decubitus position, I began by performing an external anorectal exam.? Perineum and skin were normal, as was the anal verge.? There was no evidence of external hemorrhoids.? Next, I performed a digital rectal exam.? I did not appreciate any abnormal findings.? Next, I advanced a colonoscope into the rectal vault.? I performed retroflexion.? There is a grade 1 internal hemorrhoid.? Using insufflation, I then advanced the colonoscope beyond the rect al folds and into the sigmoid colon before advancing towards the cecum.? The quality of the prep was excellent.? The scope was noted to be in the cecum by identification of the ileocecal valve and appendiceal orifice.? I then began withdrawing the colonoscope using repeated irrigation as necessary for full evaluation of the colonic mucosa. Around 70 cm from the anal verge I identified a 0.25 cm polyp. ?It appeared sessile in character. ?I was able to remove this with a cold forcep polypectomy. ?I examined the site, and there was minimal bleeding. ?Once this was completed, I continued to withdraw the scope and examine the remainder of the colonic mucosa. I also found polyps at 25 and 20 cm. Each was less than 0.25 cm. Both were removed with cold forcep polypectomy. The polyp site at 20 cm had a small amount of bleeding that was easily controlled with cautery. Once the scope was withdrawn to the level of the rectum, great care was taken to examine portions of the rectal folds.? Laya lly, the scope was withdrawn and the patient was brought to the same-day surgery recovery unit as the anesthetic wore off. ?The findings and instructions were shared with the patient prior to discharge.
[2023-03-01 08:30] VITALS: BP 158/93; PULSE 90; RESP 18; TEMP 37.1; O2SAT 96
[2023-03-01] MEDS: Lactated Ringers 1,000 ML 80 ML IV (08:55)
--- NOTE | 2023-03-01 09:05 | W.ANESPRE ---
General Info Date of Service Date Performed: 03/01/23 Height: 5 ft 9 in Weight: 95.1 kg Body Mass Index (BMI): 30.9 Surgical Procedure: Operation Date: 03/01/23 10:05 Proposed Procedure Side Surgeon p Colonoscopy Crispin Thomas MD Meds Allergies and Home Medications Allergies Allergy/AdvReac Type Severity Reaction Status Date / Time No Known Allergies Allergy Verified 02/28/23 09:49 Home Medication Medication Instructions Recorded olmesartan 40 1 tab PO HS #90 tabs 07/05/22 mg-hydrochlorothiazide 12.5 mg tablet minocycline 100 mg capsule 100 mg PO DAILY PRN acne #30 caps 12/25/22 Current Visit Medications: Current Medications Generic Name Dose Route Start Last Admin Trade Name Freq PRN Reason Stop Dose Admin Hyoscyamine Sulfate 0.125 mg 02/28/23 21:35 Hyoscyamine 0.125 Mg Sl/Oral/Chew SL DIRECTED PRN Ringer's Solution 1,000 mls @ 80 mls/hr 03/01/23 06:00 03/01/23 08:55 IV 03/30/23 23:59 80 mls/hr INFUSION HEATHER Administration IV Miscellaneous Supplies 1 each 03/01/23 06:00 Iv Access IV 03/30/23 23:59 DIRECTED HEATHER Ondansetron HCl 4 mg 02/28/23 21:35 Ondansetron 4 Mg/2 Ml Vial IVP Q4H PRN PRN Nausea / Vomiting Sodium Chloride 0 ml 03/01/23 06:00 Normal Saline Flush 10 Ml Syr IV 03/30/23 23:59 PRN PRN Sodium Chloride 0 ml 03/01/23 06:00 Normal Saline 10 Ml Vial IJ 03/30/23 23:59 DIRECTED PRN Sterile Water 0 ml 03/01/23 06:00 Water,Injection,Sterile 10 Ml Vial IJ 03/30/23 23:59 DIRECTED PRN PFSH Active Problems Active Problems: Problem Status Onset Code Tubular adenoma D36.9 Rosacea L71.9 Polyp of colon 11/18/13 K63.5 Family history of GI malignancy Z80.0 Chronic osteoarthritis 11/27/13 M19.90 Alcohol intake above recommended sensible limits Z72.89 Laceration of right index finger w/o foreign body with damage to nail 08/22/20 S61.310A Hyperlipidemia with target LDL less than 130 E78.5 Elevated PSA R97.20 Sciatica M54.30 Essential hypertension I10 History of total right knee replacement Z96.651 Prostate cancer C61 Medical History Medical History Alcohol intake above recommended sensible limits HTN (hypertension) Hx of fracture of skull 4 years old Polyp of colon, adenomatous Rosacea Surgical History Surgical History ANKLE FUSION AND JOHNNIE (05/25/14) [facility]; LEFT ANKLE (RIGHT ANKLE 08/25/14) Colonoscopy - MAC (11/18/13) Colonoscopy - MAC (12/19/17) FRACTURE AGE 4; DEPRESSED SKULL FX; 1968 RIGHT CLAVICLE FX 1971 B/L COMPOUND FX OF TIBIA Hx of tonsillectomy Hx of total knee replacement 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 Tobacco Smoking/Tobacco Use Status: Former Tobacco Use Smokeless tobacco user: chewing tobacco Passive smoking exposure: Yes Second hand exposure: Yes Counseling given: other Alcohol Alcohol Intake: current Alcohol intake frequency: a few times a week Alcohol type: beer Substance Use Substance use: Never Substance use type: does not use Counseling provided: none Details: stopped chewing tobacco ~1994 Vital Signs and Lab Results Vital Signs Most Recent Vital Signs in EMR: Most Recent Vital Signs Temp Pulse Resp BP Pulse Ox 37.1 C 90 18 158/93 H 96 03/01/23 08:30 03/01/23 08:30 03/01/23 08:30 03/01/23 08:30 03/01/23 08:30 Lab Results Blood Type / Crossmatch: No Data to Display Complete Blood Count: No Data to Display Complete Metabolic Panel: No Data to Display Liver Function Panel: No Data to Display Coagulation Panel: No Data to Display Cardiac Panel: No Data to Display Arterial Blood Gas: No Data to Display Venous Blood Gas: No Data to Display Pancreas Panel: No Data to Display Thyroid Panel: No Data to Display Infectious Disease: No Data to Display Blood Cultures: No Data to Display Toxicology Panel: No Data to Display Anesthesia Assessment and Plan Anesthesia History Personal History: No History of Anesthesia Complications Family History: No Family History of Anesthesia Complications Exercise Tolerance Exercise Tolerance: Metabolic Equivalents>4 Pertinent Negatives Pertinent Negatives: No Symptoms of GERD Cardiac & Pulmonary Exam Cardiac Exam: Normal S1/S2 Heart Sounds Pulmonary Exam: Clear Bilateral Breath Sounds Implantable Cardiac Device Does patient have a Pacemaker or an ICD?: No Airway Exam Known Difficult Airway: No Mallampati Class: 2 Mouth Opening: Normal (> 3cm) Thyromental Distance: Greater than 3 cm Neck Range of Motion: Full ROM Neck Circumference: Normal Teeth Condition: Normal Dentition ASA Classification ASA Score: ASA 2 Emergency Case?: No NPO Status NPO Status: NPO Clears >2 hours, Solids >8 hours Anesthesia Plan Resuscitation Status: Full Code Anesthesia Technique: General Anesthesia Airway Planned: Natural Airway Monitors Used: Standard Monitors
[2023-03-01 09:07] VITALS: BMI 30.9
--- NOTE | 2023-03-01 10:00 | BOWEL_PTH ---
PATIENT: Armin Boothe LOC: [facility] U#:[id number] AGE/SX: 67/M ROOM: RE03/01/[address]: Crispin Thomas MD : 1955 BED: DIS: 03/01/2023 SPEC #: [id number] RECD: 03/01/23 12:59 STATUS: [facility] RE #: [id number] ZOFIA: 03/01/23 10:[address]: Crispin Thomas DEPT: Surgical Specimen RECD BY: Judith Ziegler ENTERED: 03/01/23 13:00 SP TYPE: Bowel OTHR DR: Sterling Brandon MD Tissues: 1 - BIOPSY BOWEL 2 - BIOPSY BOWEL 3 - BIOPSY BOWEL Procedures: GROSS AND MICRO LEVEL 4 Comments: [id number]
[2023-03-01 10:17] VITALS: BP 111/78; PULSE 79; RESP 17; TEMP 36.6; O2SAT 100
--- NOTE | 2023-03-01 10:31 | W.ANESPOSTOP ---
Postoperative Evaluation Date, Time and Location Date Performed: 03/01/23 Time Performed: 10:31 Patient Location: Day Surgery Unit Vital Signs Most Recent Imported Vital Signs: Most Recent Vital Signs Temp Pulse Resp BP Pulse Ox 36.6 C 79 17 111/78 100 03/01/23 10:17 03/01/23 10:17 03/01/23 10:17 03/01/23 10:17 03/01/23 10:17 Pain Score Most Recent Pain Score: Most Recent Pain Score Pain Level 0 03/01/23 10:17 Assessment Mental Status: Awake (Alert & Oriented to Patient Baseline) Airway and Respiratory Function: Patent airway with normal (patient baseline) respiratory exam Cardiovascular Function: Hemodynamically Stable Hydration Status: Adequately Hydrated Nausea & Vomiting: No Nausea or Vomiting Pain: Pt. Denies Any Pain Peripheral Nerve Block: Patient did not receive a nerve block
[2023-03-01 10:48] VITALS: BP 125/85; PULSE 70; RESP 17; TEMP 36.7; O2SAT 100
== END 2023-03-01 10:52 | disposition home or self-care (01) ==
PROVIDERS: PCP Family Medicine; Visit Provider Surgery
PROC: 0DJD8ZZ Inspection of Lower Intestinal Tract, Via Natural or Artificial Opening Endoscopic (ICD-10-PCS; CPT 45378; principal; 2023-03-01 10:00)
DX: Z12.11 Encounter for screening for malignant neoplasm of colon (principal); Z80.0 Family history of malignant neoplasm of digestive organs; K63.5 Polyp of colon
CPT/HCPCS: 45380; 88305

== ENCOUNTER 2023-03-02 09:41 | Outpatient (CLI) | payer MEDICARE, BC, SELFPAY ==
--- NOTE | 2023-03-02 09:15 | DI.RAD_ITS ---
Exam(s) XR KNEE RT 2V AP,LAT EXAM: XR KNEE RT 2V AP,LAT CLINICAL HISTORY: ANNUAL F/U R TKA. TECHNIQUE: 2D digital imaging was performed. COMPARISON: CR XR KNEE RT 1V from 03/10/2022 CR XR STANDING ALIGNMENT from 03/10/2022 FINDINGS: Two views: There is continued stable appearance the components of prosthesis. No evidence of loosening of the f emoral component. On the lateral view there is subtle lucency subjacent to the tibial plateau compon ent. Correlation any clinical signs of loosening is recommended. No radiographic evidence of osteomyelitis. IMPRESSION: As above. DATA REPOSITORY: RADIATION DOSE DELIVERED:
== END 2023-03-02 09:42 | disposition home or self-care (01) ==
LOC: DIORS 09:41
PROVIDERS: PCP Family Medicine; Referring Provider Family Medicine; Visit Provider Student in an Organized Health Care Education/Training Program
DX: Z96.651 Presence of right artificial knee joint (principal); Z47.1 Aftercare following joint replacement surgery
CPT/HCPCS: 99213; 73560

== ENCOUNTER 2025-01-08 02:23 | Outpatient (CLI) | payer MEDICARE, BC, SELFPAY ==
[2025-01-08 10:38] LABS: Anion Gap 10.3 mmol/L (3-11); BUN 18 mg/dL (7-18); CO2 23.7 mmol/L (21.0-32.0); CREATININE 1.2 mg/dL (0.70-1.30); Calcium 8.7 mg/dL (8.5-10.1); Calculated LDL 47 mg/dL (<100); Chloride 108 mmol/L (98-107); Cholesterol 107 mg/dL (<200); Estimated GFR 64.65 (mL/min/1.73m2); Glucose 107 mg/dL (74-106); HDL Cholesterol 49 mg/dL (>or=40); Sodium 142 mmol/L (136-145); Triglyceride 57 mg/dL (<150)
== END 2025-01-08 02:24 | disposition home or self-care (01) ==
PROVIDERS: PCP Family Medicine; Visit Provider Family Medicine
DX: E78.5 Hyperlipidemia, unspecified (principal); E87.1 Hypo-osmolality and hyponatremia
CPT/HCPCS: 36415; 80048; 80061

== ENCOUNTER 2025-01-16 08:40 | Outpatient (CLI) | payer MEDICARE, BC, SELFPAY ==
--- NOTE | 2025-01-16 11:00 | DI.US_ITS ---
APPROVED REPORT EXAM: Comprehensive 2D, Doppler, and color-flow Echocardiogram Patient Location: Out-Patient Lan Analyst: Forest Da Silva RDCS (AE) Indications: Lower extremity edema Other Information Study Quality: Adequate Conclusion Normal left ventricular wall thickness and chamber size. Ejection fraction is 70 to 75%. Wall motio n is hyperdynamic Normal right ventricular size and function Both atria are normal in size Aortic valve is mildly sclerotic and trileaflet without stenosis or regurgitation Mitral annular calcification. Trace to mild mitral regurgitation Normal estimated right ventricular systolic pressure 26 mmHg Wall motion Left Ventricle The left ventricle is normal size. Left ventricular systolic function is normal. The left ventricular ejection fraction is within the normal range. There is normal left ventricular wall thickness. There is normal LV segmental wall motion. There is no ventricular septal defect visualized. LVEF is 70-75% . Right Ventricle The right ventricle is normal size. The right ventricular systolic function is normal. Atria The left atrium size is normal. The right atrium size is normal. The interatrial septum is intact wit h no evidence for an atrial septal defect. Aortic Valve The aortic valve is mildly sclerotic. Aortic valve is trileaflet. There is no aortic valvular stenosi s. No aortic regurgitation is present. Mitral Valve Mild mitral annular calcification. No evidence of mitral valve stenosis. Trace to mild mitral regurgi tation. Tricuspid Valve The tricuspid valve is normal in structure. There is no tricuspid valve stenosis. Mild tricuspid regu rgitation. The RVSP is 26.4 mmHg. Pulmonic Valve The pulmonary valve is normal in structure. There is no pulmonic valvular stenosis. There is no pulmo annette valvular regurgitation. Great Vessels The aortic root is normal in size. The ascending aorta is normal in size. Aortic arch is normal in ca liber. IVC is normal in size and collapses >50% with inspiration. Pericardium There is no pericardial effusion. Ascites is present. 2D Dimensions IVSD d PLAX 0.84 cm M: 0.6-1.2 Ao Root d 3.61 cm M: 3.1 - 3.7 LVPW d PLAX 0.84 cm M: 0.6 - 1.2 Ao Asc Diam d 3.29 cm M: 2.6 - 3.4 LVID d PLAX 4.61 cm M: 4.2 - 5.8 LVDs 2.92 cm M: 2.5 - 4.0 LV EF Teichholz 66.4 % FS 36.55 % LV EDV (Teich) 97.8 mL LV ESV (Teich) 32.9 mL Stroke Vol Index (Teich) 30.48 M-Mode TAPSE 2.46 cm (M/F) >1.7 Auto EF LV EDV A4C 101.3 mL LV EDV A2C 114.3 mL LV EDV BP LV ESV A4C 33.9 mL LV ESV A2C 36.2 mL LV ESV BP LVEF(%) A4C 66.6 % LVEF(%) A2C 68.4 % LVEF(%) BP LV SV A4C 67.4 ml LV SV A2C 78.2 ml LV SV BP LV CO A4C 5.7 L/min LV CO A2C 6.5 L/min LV CO BP HR A4C 83.88 BPM HR A2C 82.57 BPM LV EDV Index (BP) LA Volume LA Length A4C 3.5 cm LA Length A2C 4.6 cm LA Area A4C s 8.51 cm2 LA Area A2C s 13.13 cm2 LA Vol A4C A-L 17.66 mL LA Vol A2C A-L 31.63 mL LA Vol Biplane A-L 27.3 mL LA Vol/BSA A4C A-L LA Vol/BSA A2C A-L LA Vol/BSA BP A-L 12.8 mL/m2 LA Vol A4C MOD 17.0 mL LA Vol A2C MOD 29.8 mL LA Vol BP MOD 25.9 mL RA Volume RA Area A4C 4.5 cm2 RA ESV A4C (A-L) 6.6mL RA Vol/BSA A4C A-L RA Length A4C 2.6 cm RA ESV A4C (MOD) 6.2mL LV Diastology MV E' medial 0.080 (>0.07 m/s) MV E Vmax 0.84 (0.4-1.3 m/s) MV E/E' MED 10.47 (<14) MV A Vmax 0.80 (0.4-1.3 m/s) MV E' lateral 0.137 (>0.1 m/s) E/A Ratio 1.0 MV E/E' LAT 6.12 (<14) MV E' Average 0.108 m/s MV E/E'(average) 7.72 Aortic Valve AoV Vmax 1.76 m/s LVOT Vmax 1.32 m/s AoV Peak Grad 12.3 mmHg LVOT Peak Grad 6.9 mmHg AoV Area (Vmax) 2.42 cm2 LVOT VTI 0.254 m AoV VTI 0.358 m LVOT Mean Grad 3.5 mmHg AoV Mean Harsh. 1.23 m/s LVOT SV 81.97 mL AoV Mean Grad 6.9 mmHg LVOT Diam s 2.00 cm AoV Area (VTI) 2.29 cm2 AV Regurg Peak Gr. 12.33 mmHg Velocity Ratio 0.75 Mitral Valve MV DT 166 (160-240 msec) Pulmonary Valve PV Vmax 0.94 (0.5-1.5 m/s) RVOT Vmax 0.67 m/s PV Peak Grad 3.6 mmHg RVOT Peak Gr. 1.8 mmHg PV Mean Harsh 0.72 m/s RVOT VTI 0.120 m PV Mean Grad 2.2 mmHg RVOT Mean Gr. 1.1 mmHg Tricuspid Valve RA Pressure 3.00 mmHg TR Vmax 2.42 m/s TV S' 0.25 m/s TR Peak Grad 23.3 mmHg RVSP (TR) 26.4 mmHg
== END 2025-01-16 09:00 ==
LOC: DI 08:42
PROVIDERS: PCP Family Medicine; Visit Provider Internal Medicine Cardiovascular Disease
DX: R60.0 Localized edema (principal); I35.0 Nonrheumatic aortic (valve) stenosis
CPT/HCPCS: 93306

== ENCOUNTER 2025-02-13 08:12 | Outpatient (CLI) | payer MEDICARE, BC, SELFPAY ==
--- NOTE | 2025-02-13 08:00 | DI.US_ITS ---
Exam(s) US EXTREMITY VENOUS BI EXAM: US EXTREMITY VENOUS BI CLINICAL HISTORY: nedra LE edema, nedra leg pain, R60.0 localized edema, M79.604, M79.605 TECHNIQUE: Grayscale, color, and doppler imaging of the deep venous system of both lower extremities was performed. COMPARISON: US US ECHOCARDIOGRAM from 01/16/2025 FINDINGS: There is no evidence of intraluminal thrombus and there is normal compression and augmentation demons trated within the common femoral veins, femoral veins, and popliteal veins of both lower extremities. In the calves the interrogated veins also exhibit normal compression/ augmentation properties. The greater saphenous veins also appear patent as do the saphenofemoral junctions bilaterally.. IMPRESSION: 1. No ultrasound evidence of DVT in either lower extremity. DATA REPOSITORY:
--- NOTE | 2025-02-13 12:41 | DI.RAD_ITS ---
Exam(s) XR SHOULDER RT COMPLETE 2+V EXAM: XR SHOULDER RT COMPLETE 2+V CLINICAL HISTORY: nedra shoulder pain, M25.511, M25.512, rt/lt shoulder pain. TECHNIQUE: 2D digital imaging was performed. Five views. COMPARISON: CR XR SHOULDER LT COMPLETE 2+V from 02/13/2025 FINDINGS: BONES: No acute fracture is present. No bony destructive lesion is seen. JOINTS: No dislocation present. Mild spurring at the AC joint. Spurring at the undersurface of the acromion. Spurring at the glenohumeral joint. The joint space is maintained. SOFT TISSUE: Normal. IMPRESSION: Mild degenerative changes. DATA REPOSITORY: RADIATION DOSE DELIVERED:
--- NOTE | 2025-02-13 12:42 | DI.RAD_ITS ---
Exam(s) XR SHOULDER LT COMPLETE 2+V EXAM: XR SHOULDER LT COMPLETE 2+V CLINICAL HISTORY: nedra shoulder pain, M25.511, M25.512 lt/rt shoulder pain. TECHNIQUE: 2D digital imaging was performed. Three views. COMPARISON: CR XR SHOULDER RT COMPLETE 2+V from 02/13/2025 FINDINGS: BONES: No acute fracture is present. No bony destructive lesion is seen. Spurring at the tip of the acromion. JOINTS: No dislocation present. There is mild spurring at the AC joint and glenohumeral joint. Zach ohumeral joint space is mildly narrowed. SOFT TISSUE: There are 2 small calcifications adjacent to the proximal humeral shaft suspicious for c alcific tendinosis of the biceps. There is an additional tiny calcification near the greater greater tuberosity also consistent with calcific tendinosis. IMPRESSION: Degenerative changes and calcific tendinosis. DATA REPOSITORY: RADIATION DOSE DELIVERED:
== END 2025-02-13 08:32 ==
LOC: DI 08:13
PROVIDERS: PCP Family Medicine; Visit Provider Family Medicine
DX: M19.011 Primary osteoarthritis, right shoulder (principal); M19.012 Primary osteoarthritis, left shoulder; R60.0 Localized edema; M79.605 Pain in left leg; M79.604 Pain in right leg
CPT/HCPCS: 73030; 93970

== ENCOUNTER → 2025-03-19 13:43 | Outpatient (BNVA) | payer MEDICARE, BC, SELFPAY | PROVIDERS: PCP Family Medicine; Referring Provider Family Medicine; Visit Provider Nurse Practitioner Gerontology | DX: R97.20 Elevated prostate specific antigen [PSA] (principal); C61 Malignant neoplasm of prostate; R39.9 Unspecified symptoms and signs involving the genitourinary system | CPT/HCPCS: 99215; 51798 ==

== ENCOUNTER 2025-03-19 14:50 | Outpatient (CLI) | payer MEDICARE, BC, SELFPAY ==
[2025-03-19 15:34] LABS: ALT 27 U/L (16-63); AST 56 U/L (15-37); Albumin 3.2 g/dL (3.4-5.0); Alkaline Phosphatase 175 U/L (46-116); Bilirubin, Direct 0.8 mg/dL (0.0-0.2); Bilirubin, Total 1.9 mg/dL (0.2-1.0); Total Protein 7.3 g/dL (6.4-8.2)
[2025-03-24 13:41] LABS: PSA, Ultrasensitive 6.5 ng/mL (<= 6.5)
== END 2025-03-19 14:51 | disposition home or self-care (01) ==
LOC: LBO 14:53
PROVIDERS: PCP Family Medicine; Visit Provider Nurse Practitioner Gerontology
DX: R97.20 Elevated prostate specific antigen [PSA] (principal); C61 Malignant neoplasm of prostate; G72.89 Other specified myopathies
CPT/HCPCS: 36415; 51798; 80076; 84153; 99215

== ENCOUNTER → 2025-04-03 10:59 | Outpatient (BNVA) | payer MEDICARE, BC, SELFPAY | PROVIDERS: PCP Family Medicine; Referring Provider Family Medicine; Visit Provider Urology | DX: C61 Malignant neoplasm of prostate (principal) | CPT/HCPCS: 55700; 76872 ==

== ENCOUNTER 2025-04-03 13:42 | Outpatient (REF) | payer MEDICARE, BC, SELFPAY ==
--- NOTE | 2025-04-03 11:20 | PROST_PTH ---
PATIENT: Armin Boothe LOC: [facility] U#:[id number] AGE/SX: 70/M ROOM: RE04/03/[address]: Yann Mukherjee MD : [id number] BED: DIS: 04/03/2025 SPEC #: [id number] RECD: 04/03/25 17:33 STATUS: [facility] #: [id number] ZOFIA: 04/03/25 11:[address]: Yann Mukherjee DEPT: Surgical Specimen RECD BY: Judith Ziegler ENTERED: 04/03/25 17:34 SP TYPE: PROST OTHR DR: Sterling Brandon MD Tissues: 1 - PROSTATE NEEDLE BIOPSY 2 - PROSTATE NEEDLE BIOPSY 3 - PROSTATE NEEDLE BIOPSY 4 - PROSTATE NEEDLE BIOPSY 5 - PROSTATE NEEDLE BIOPSY 6 - PROSTATE NEEDLE BIOPSY 7 - PROSTATE NEEDLE BIOPSY 8 - PROSTATE NEEDLE BIOPSY 9 - PROSTATE NEEDLE BIOPSY 10 - PROSTATE NEEDLE BIOPSY 11 - PROSTATE NEEDLE BIOPSY 12 - PROSTATE NEEDLE BIOPSY Procedures: GROSS AND MICRO LEVEL 4 IMMUNOPEROXIDASE STAIN Comments: [id number]
== END 2025-04-03 13:43 | disposition home or self-care (01) ==
LOC: LBN 13:42
PROVIDERS: PCP Family Medicine; Visit Provider Urology
DX: C61 Malignant neoplasm of prostate (principal); R97.20 Elevated prostate specific antigen [PSA]
CPT/HCPCS: 88305; 88361

== ENCOUNTER → 2025-04-14 09:07 | Outpatient (BNVA) | payer MEDICARE, BC, SELFPAY | PROVIDERS: PCP Family Medicine; Referring Provider Family Medicine; Visit Provider Nurse Practitioner Gerontology | DX: C61 Malignant neoplasm of prostate (principal); Z80.42 Family history of malignant neoplasm of prostate | CPT/HCPCS: 99215 ==

== ENCOUNTER → 2025-05-21 08:02 | Outpatient (BNVA) | payer MEDICARE, BC, SELFPAY | PROVIDERS: PCP Family Medicine; Referring Provider Family Medicine; Visit Provider Nurse Practitioner Gerontology | DX: C61 Malignant neoplasm of prostate (principal); Z80.42 Family history of malignant neoplasm of prostate | CPT/HCPCS: 99215 ==

== ENCOUNTER 2025-07-27 04:13 | Outpatient (CLI) | payer MEDICARE, BC, SELFPAY ==
[2025-07-27 09:47] LABS: C-Reactive Protein < 0.50 mg/dL (<or=0.5)
[2025-07-27 10:03] LABS: ESR 11 mm/hr (0-20)
[2025-07-27 15:48] LABS: Abs Immature Grans 0.01 10^3/uL (0.0-0.06); HCT 29.7 % (40.0-50.0); HGB 10.0 g/dL (13.5-17.5); Immature Grans % 0.2 %; MCH 31.8 pg (27.0-33.0); MCHC 33.7 % (32.0-36.0); MCV 95 fL (80-95); MPV 11.1 fL (8.0-11.0); Platelet Count 102 10^3/uL (130-400); RBC 3.14 10^6/uL (4.36-5.78); RDW 17.2 % (11.8-14.1); RDW-SD 60.2 fL; WBC 4.09 10^3/uL (4.4-10.8)
[2025-07-27 19:43] LABS: Lab Add On Test DONE
[2025-07-27 20:02] LABS: ALT 31 U/L (16-63); AST 63 U/L (15-37); Albumin 2.5 g/dL (3.4-5.0); Alkaline Phosphatase 185 U/L (46-116); Bilirubin, Direct 1.2 mg/dL (0.0-0.2); Bilirubin, Total 1.5 mg/dL (0.2-1.0); Total Protein 6.9 g/dL (6.4-8.2)
[2025-08-01 17:02] LABS: Testosterone, Free 6.25 ng/dL (3.28-12.2)
== END 2025-07-27 04:14 | disposition home or self-care (01) ==
LOC: LBO 04:13
PROVIDERS: PCP Family Medicine; Visit Provider Family Medicine
DX: R41.89 Other symptoms and signs involving cognitive functions and awareness (principal); Z00.00 Encounter for general adult medical examination without abnormal findings; D64.9 Anemia, unspecified; M25.50 Pain in unspecified joint; R79.89 Other specified abnormal findings of blood chemistry
CPT/HCPCS: 36415; 80076; 84402; 84403; 85652; 85025; 86140

== ENCOUNTER 2025-08-10 02:08 | Outpatient (CLI) | payer MEDICARE, BC, SELFPAY ==
--- NOTE | 2025-08-10 06:15 | DI.US_ITS ---
Exam(s) US ABDOMEN LIMITED EXAM: US ABDOMEN LIMITED CLINICAL HISTORY: anemia; high FIB4 score suggestive of cirrhosis,abd pain, r10.9 TECHNIQUE: Ultrasound of the right upper quadrant performed using standard protocol. COMPARISON: US ABDOMEN ULTRASOUND (P) from 03/02/2011 FINDINGS: Exam is limited by bowel gas. LIVER: Nor mildly enlarged at 20 cm. Coarsened echotexture. nodular liver surface. No focal liver lesions are seen. Portal venous waveforms difficult to obtain due to a large amount of bowel gas. The portal vein does appear dilated. GALLBLADDER: No evidence of cholelithiasis. No pericholecystic fluid identified. APONTE'S SIGN: Negative. BILIARY SYSTEM: No intrahepatic or extrahepatic biliary ductal dilation. RIGHT KIDNEY: Normal size. No evidence of renal calculi. No evidence of hydronephrosis. No suspicious renal mass. No cyst identified. PANCREAS: Normal where visualized. ABDOMINAL AORTA AND IVC: Visualized portions normal caliber. ASCITES: None seen. IMPRESSION: limited exam due to shadowing by bowel gas. The liver has a cirrhotic appearance. DATA REPOSITORY:
== END 2025-08-10 02:28 ==
LOC: DI 02:08
PROVIDERS: PCP Family Medicine; Visit Provider Family Medicine
DX: R10.9 Unspecified abdominal pain (principal); K74.60 Unspecified cirrhosis of liver
CPT/HCPCS: 76705